=== PATIENT | male | born 1945 | race Caucasian/White ===

== ENCOUNTER 2017-04-02 05:36 | Inpatient (IN) | payer MEDICARE, OTHER ==
[~2017-04-02] VITALS: Ht 182.9 cm; Wt 84.2 kg
[~2017-04-02 05:36] MED LIST: CHOL500015 PO; MEGA RED PO; MULT-412 PO; SUPER BEETS PO
[2017-04-02] MEDS ORDERED: LACTATED RINGERS 1,000 ML IV SCH (06:08)
[2017-04-02] MEDS ORDERED: MIDAZOLAM 1 MG/ML, 2ML ONE (07:28)
[2017-04-02] MEDS ORDERED: FENTANYL PF 100 MCG/2ML ONE (07:28)
[2017-04-02] MEDS ORDERED: EPHEDRINE 50 MG/ML, 1ML ONE (07:45)
[2017-04-02] MEDS ORDERED: PROPOFOL 10 MG/ML, 20ML ONE (07:45)
[2017-04-02] MEDS ORDERED: DEXAMETHASONE 4 MG/ML, 1ML ONE (07:45)
[2017-04-02] MEDS ORDERED: ONDANSETRON 2MG/ML, 2ML ONE (07:45)
[2017-04-02] MEDS ORDERED: HYDROcodone/APAP 7.5-325MG/15ML UDC PO PRN (08:00)
[2017-04-02] MEDS ORDERED: ONDANSETRON 2MG/ML, 2ML IVPush PRN (08:00)
[2017-04-02] MEDS ORDERED: LABETALOL 5MG/ML, 20ML IV PRN (08:00)
[2017-04-02] MEDS ORDERED: EPHEDRINE 50 MG/ML, 1ML IVPush PRN (08:00)
[2017-04-02] MEDS ORDERED: MIDAZOLAM 1 MG/ML, 2ML IV PRN (08:00)
[2017-04-02] MEDS ORDERED: MEPERIDINE/PF 25MG/0.5ML IVPush PRN (08:00)
[2017-04-02] MEDS ORDERED: METOCLOPRAMIDE 5 MG/ML, 2ML IV PRN (08:00)
[2017-04-02] MEDS ORDERED: HYDROmorphone 1 MG/ML, 1ML IV PRN (08:00)
[2017-04-02] MEDS ORDERED: FENTANYL PF 100 MCG/2ML IV PRN (08:00)
[2017-04-02] MEDS ORDERED: HYDROcodone/APAP 7.5-325MG/15ML UDC ONE (09:51)
[2017-04-02] MEDS ORDERED: ONDANSETRON 2MG/ML, 2ML IV PRN (12:00)
[2017-04-02] MEDS ORDERED: OXYcodone/APAP 5/325MG TABLET PO PRN (12:00)
[2017-04-02] MEDS ORDERED: D5%-0.45NACL+KCL 20MEQ 1,000 ML IV SCH (12:00)
[2017-04-02] MEDS ORDERED: HYDROmorphone 2 MG/ML, 1ML IV PRN (12:00)
[2017-04-02] MEDS ORDERED: OPIUM/BELLADONNA SUPP.RECT 16.2-30 MG PR PRN (12:00)
[2017-04-02 12:44] VITALS: BP 129/68
[2017-04-02 19:04] VITALS: BP 121/67
[2017-04-02 23:00] VITALS: BP 143/82
[2017-04-03 02:53] VITALS: BP 151/72
[2017-04-03 09:05] VITALS: BP 117/66
[2017-04-03 13:40] VITALS: BP 134/86
[2017-04-03] MEDS ORDERED: OXYC-302 PO (14:59)
== END 2017-04-03 15:11 | disposition home or self-care (01) | DRG 714 ==
LOC: OUT 05:36 → 4NOR 10:51 → OUT 11:07 → DCLOUNGE 04-03 14:55
PROVIDERS: ADMIT Urology; ATTEND Urology
PROC: 0V508ZZ Destruction of Prostate, Via Natural or Artificial Opening Endoscopic (ICD-10-PCS; principal; 2017-04-02 07:30)
DX: N40.1 Benign prostatic hyperplasia with lower urinary tract symptoms (principal); N39.498 Other specified urinary incontinence; R39.12 Poor urinary stream
CPT/HCPCS: J1100; J2250; J2405; J2704; J3010; J3480; J7120

== ENCOUNTER → 2017-07-15 | Outpatient (CLI) | payer MEDICARE, OTHER ==
[~2017-07-15] MED LIST changes: +OMEG-76 PO; +OXYC-302 PO; +TURM500C4 PO; +VITA400C43 PO
[2017-07-15 16:09] LABS: PATH.CAST-FLAG NOT PRESENT; SPERM-FLAG NOT PRESENT; SRC-FLAG NOT PRESENT; XTAL-FLAG NOT PRESENT; YLC-FLAG NOT PRESENT
== END | disposition home or self-care (01) ==
LOC: STAR 15:02
PROVIDERS: ATTEND Orthopaedic Surgery
DX: Z01.818 Encounter for other preprocedural examination (principal); M19.011 Primary osteoarthritis, right shoulder; M19.071 Primary osteoarthritis, right ankle and foot; M75.100 Unspecified rotator cuff tear or rupture of unspecified shoulder, not specified as traumatic; R82.99 Other abnormal findings in urine
CPT/HCPCS: 81001; 87081; 87086; 87147; 93005